=== PATIENT | male | born 2000 ===

== ENCOUNTER 2020-10-18 18:43 | Emergency (ER) | payer BC ==
[2020-10-18] MEDS ORDERED: Ondansetron 4 MG/2 ML SDV IVPUSH ONE (20:43)
[2020-10-18] MEDS ORDERED: Penicillin G Benzathine 1,200,000 Units/2 ML Syringe IM ONE (21:00)
[2020-10-18] MEDS ORDERED: Ibuprofen 800 MG Tab PO ONE (21:29)
--- NOTE | 2020-10-18 21:48 | EDM.PDOC ---
ED HPI GENERAL MEDICAL PROBLEM - General Chief Complaint: General Stated Complaint: MULTIPLE ISSUES Time Seen by Provider: 10/18/20 20:24 Source of Information: Reports: Patient History Limitations: Reports: No Limitations - History of Present Illness INITIAL COMMENTS - FREE TEXT/NARRATIVE: 20-year-old male presents the emergency department with a 3-day history of sore throat, headache, fever, chills, nausea, vomiting, cough, shortness of breath, and epigastric pain. Patient also states he noted complaints of burning with urination at that time. He states he was seen at the [facility] walk-in clinic yesterday and tested for Covid and was told this was negative. He then went to [facility] walk-in [facility] today and was tested for strep throat which he states that was negative and treated for chlamydia and gonorrhea. He states he took his for antibiotic tabs this morning at 8 AM for treatment of chlamydia and gonorrhea. He states however at about 4 PM this afternoon he vomited and he is under the impression that he vomited up his antibiotics. He states his symptoms have worsened since they started and is having worsening throat pain, nausea, vomiting, headache and cough. He states he did have Covid in January 2020. Denies any previous medical history other than asthma for which he uses an albuterol inhaler as needed. Treatments [employer]OC[employer]ATE: Reports: Other (see below) Other Treatments GUEST SERVICES ASSOCIATE: motrin,advil, antibiotic Headache Pain Score (Numeric/FACES): 10 Penis Pain Score (Numeric/FACES): 10 - Related Data Allergies Allergy/AdvReac Type Severity Reaction Status Date / Time No Known Allergies Allergy Verified 09/17/18 16:39 Home Meds: Home Meds . [No Known Home Meds] 10/18/20 [History] Past Medical History Respiratory History: Reports: Asthma - Infectious Disease History Infectious Disease History: Reports: None - Past Surgical History HEENT Surgical History: Reports: Oral Surgery Social & Family History - Family History Family Medical History: No Pertinent Family History - Tobacco Use Tobacco Use Status *Q: Current Every Day Tobacco User Years of Tobacco use: 4 Packs/Tins Daily: 0.2 - Caffeine Use Caffeine Use: Reports: Coffee, Energy Drinks, Tea - Recreational Drug Use Recreational Drug Use: No - Living Situation & Occupation Living situation: Reports: Single Occupation: Unemployed ED ROS GENERAL - Review of Systems Review Of Systems: Comprehensive ROS is negative, except as noted in HPI. ED EXAM, GENERAL - Physical Exam Exam: See Below Exam Limited By: No Limitations General Appearance: Alert, WD/WN, Mild Distress Ears: Normal External Exam, Hearing Grossly Normal Course - Vital Signs Text/Narrative:: As stated above, patient presents with symptoms that started 3 days ago. He states that they have progressively worsened and he has been tested for Covid and strep throat at the walk-in clinic yesterday and today and they were negative. He states he has been taking ibuprofen to treat to the headache discomfort however he is unable to keep any food or fluids down due to nausea and vomiting. Upon exam, the patient is ill-appearing as he is diaphoretic. Vahe carbajal's tonsils are erythematous and edematous found to have exudate noted. He does have tonsillar lymph node swelling on the left side which he states is painful to palpation. Lung sounds are diminished. Exam is otherwise unremarkable. Patient has been treated for STI and this likely will take 24 to 48 hours for symptoms to begin clearing up and I did discuss this with him at length. I suspect that patient has epigastric pain due to nausea and vomiting and not being able to eat or drink and taking only ibuprofen for the discomfort. I discussed this with him as well and will order some Zofran IV to see if we can get him to keep some food and fluids down. We will reswab him for Covid and obtain portable chest x-ray. Clinically this patient does have strep pharyngitis and will be treated as such. I have ordered for him to receive shot of penicillin IM. Last Recorded V/S: Last Vital Signs Temp 100.3 F 10/18/20 19:00 Pulse 104 H 10/18/20 19:00 Resp 20 10/18/20 19:00 BP 161/91 H 10/18/20 19:00 Pulse Ox 97 10/18/20 19:00 - Orders/Labs/Meds Orders: Active Orders 24 hr Category Date Time Status Chest 1V Frontal [CR] Stat Exams 10/18/20 21:03 Taken Labs: Laboratory Tests 10/18/20 Range/Units 19:58 SARS-CoV-2 RNA (FATUMA) Negative (NEGATIVE) Meds: Medications Discontinued Medications Generic Name Dose Route Start Last Admin Trade Name Neymar PRN Reason Stop Dose Admin Ibuprofen 800 mg 10/18/20 21:29 10/18/20 21:40 Ibuprofen 800 Mg Tab PO 10/18/20 21:30 800 mg ONETIME ONE Administration Ondansetron HCl 4 mg 10/18/20 20:43 10/18/20 21:10 Ondansetron 4 Mg/2 Ml Sdv IVPUSH 10/18/20 20:44 4 mg ONETIME ONE Administration Penicillin G Benzathine 1.2 millunits 10/18/20 21:00 10/18/20 21:12 Penicillin G Benzathine 1,200,000 Units/2 Ml Syringe IM 10/18/20 21:01 1.2 millunits ONETIME ONE Administration - Re-Assessments/Exams Free Text/Narrative Re-Assessment/Exam: 10/18/20 21:58 Patient is asking for something for his headache discomfort. We will have nursing staff take some water and applesauce in and see if he can keep that down and if he can we will order ibuprofen 800 mg. 10/18/20 22:42 Swab for Covid is negative Discussed lab results and chest x-ray results with the patient. He states that he is feeling just slightly better. He states that he was able to keep applesauce down without throwing up however he is still having some epigastric discomfort. He then tells me he has been taking a fair amount of ibuprofen on an empty stomach and I discussed the repercussions of that with the patient. That it makes him more prone to gastric ulcers. He will be discharged to home and sent with a prescription for Zofran ODT. Departure - Departure Time of Disposition: 22:44 Disposition: Home, Self-Care 01 Condition: Good Clinical Impression: Tonsillitis - Discharge Information Instructions: Tonsillitis, [id number] Referrals: PCP,None [Primary Care Provider] - Forms: ED Department Discharge Additional Instructions: You were seen in the emergency department this evening with sore throat, headache, nausea, vomiting and upper abdominal discomfort. Chest x-ray was completed and this was unremarkable. Covid swab was completed and this was negative. Did not swab you for strep throat as clinically you did have this. You were given a dose of penicillin while in the emergency department. This is to treat strep throat. It will likely be 48 to 72 hours before you notice the effects of the antibiotic. I have given you a prescription for a medication called Zofran ODT, it is used to treat nausea and vomiting. You may take 1 tab every 6 hours as needed for nausea and vomiting. Do not swallow the pill whole, place it under your tongue and allow it to dissolve. Allow 30 minutes prior to eating or drinking for the medication to take full effect. Go home and rest and drink plenty of fluids. Recommend that for the next 48 hours you take Tylenol 650 mg alternating with ibuprofen 600 mg to treat pain and inflammation. Be sure to take the ibuprofen with food as taking that on an empty stomach can cause stomach upset and ulcers. I think that this is likely the cause of your upper abdominal discomfort and the fact that you have not eaten much food over the past couple of days. Should your condition worsen or change, do not hesitate returning to the emergency department. Sepsis Event Note (ED) - Focused Exam Vital Signs: Vital Signs Temp Pulse Resp BP Pulse Ox 10/18/20 19:00 100.3 F 104 H 20 161/91 H 97 - My Orders Last 24 Hours: My Active Orders 10/18/20 21:03 Chest 1V Frontal [CR] Stat - Assessment/Plan Last 24 Hours: My Active Orders 10/18/20 21:03 Chest 1V Frontal [CR] Stat
--- NOTE | 2020-10-19 06:57 | CR ---
Chest: Portable view of the chest was obtained. Comparison: No prior chest imaging is available. Heart size and mediastinum are normal. Lungs are clear with no acute parenchymal change. Bony structures show nothing acute. Impression: 1. Nothing acute is seen on portable chest x-ray. Diagnostic code #1
== END 2020-10-18 22:55 | disposition home or self-care (01) ==
LOC: JD.ED 18:43
DX: J03.90 Acute tonsillitis, unspecified (principal); Z72.0 Tobacco use; Z20.822 Contact with and (suspected) exposure to COVID-19
CPT/HCPCS: 71045; 87635; 87804; 96372; 96374; 99284; A9270; J0561; J2405; 99283; U0002